=== PATIENT | female | born 1950 | race Two or more races ===

== ENCOUNTER 2017-02-06 13:00 | Emergency (ER) | payer MEDICAID, OTHER ==
[~2017-02-06] VITALS: Ht 170.2 cm; Wt 83.0 kg
[2017-02-06 13:43] VITALS: BP 162/90
== END 2017-02-06 15:14 | disposition home or self-care (01) ==
LOC: ER 13:04
DX: M62.838 Other muscle spasm (principal); I10 Essential (primary) hypertension
CPT/HCPCS: A4606; Z7610

== ENCOUNTER 2017-03-12 02:54 | Emergency (ER) | payer MEDICAID ==
[~2017-03-12] VITALS: Ht 172.7 cm; Wt 72.6 kg
--- NOTE | 2017-03-12 03:41 | NUR ---
Patient discharged to home in stable condition. Written and verbal after care instructions given. Patient verbalizes understanding of instruction. ambulatory with a steady gait
[2017-03-12 03:42] VITALS: BP 157/80
== END 2017-03-12 03:43 | disposition home or self-care (01) ==
LOC: ER 02:59
DX: I10 Essential (primary) hypertension (principal); F41.9 Anxiety disorder, unspecified; Z98.890 Other specified postprocedural states
CPT/HCPCS: 99283; A4606; Z7610

== ENCOUNTER 2018-07-22 16:02 | Emergency (ER) | payer MEDICARE, MEDICAID ==
[~2018-07-22] VITALS: Ht 172.7 cm; Wt 88.5 kg
[2018-07-22 16:17] VITALS: BP 170/74
[2018-07-22] MEDS ORDERED: OXYMETAZOLINE HCL NASAL SPRAY 30 ML BOTTLE NS ONE ×2 (16:30→16:31)
--- NOTE | 2018-07-22 17:51 | NUR ---
For discharge- Aftercare instructions given, verbalized understanding.NO active nose bleed noted. Home ambulatory. Stable
== END 2018-07-22 17:53 | disposition home or self-care (01) ==
LOC: ER 16:03
DX: R04.0 Epistaxis (principal); I10 Essential (primary) hypertension; E78.00 Pure hypercholesterolemia, unspecified; Z90.89 Acquired absence of other organs; Z98.890 Other specified postprocedural states; Z60.2 Problems related to living alone
CPT/HCPCS: 99283; A4606

== ENCOUNTER 2021-09-03 18:32 | Inpatient (IN) | payer MEDICARE, OTHER ==
[~2021-09-03] VITALS: Ht 172.7 cm; Wt 84.8 kg
--- NOTE | 2021-09-03 19:19 | NUR ---
REPORT GIVEN TO NURSE GALO FOR ARIC
[2021-09-03 19:59] LABS: CALCIUM, SERUM 8.7 mg/dL (8.5-10.1); CARBON DIOXIDE 29 mmol/L (21-32); CHLORIDE 104 mmol/L (98-107); GLUCOSE 111 mg/dL (74-106); POTASSIUM 4.4 mmol/L (3.5-5.1); SODIUM SERUM 137 mmol/L (136-145); UREA NITROGEN, BLOOD 22 mg/dL (7-18)
[2021-09-03 20:00] LABS: BASOPHILS # (AUTO) 0.1 K/uL (0.0-0.2); BASOPHILS % (AUTO) 1.2 % (0.0-2.0); HEMATOCRIT 33 % (33-45); HEMOGLOBIN 11.2 g/dL (11.5-14.8); LYMPHOCYTES # (AUTO) 1.5 K/uL (0.8-4.8); LYMPHOCYTES % (AUTO) 33.7 % (20.0-44.0); MEAN CORPUSCULAR HGB CONC 34 g/dl (31.0-36.0); MEAN CORPUSCULAR VOLUME 85 fL (82-100); MONOCYTES # (AUTO) 0.5 K/uL (0.1-1.30); MONOCYTES % (AUTO) 11.8 % (2.0-12.0); NEUTROPHILS # (AUTO) 2.2 K/uL (1.8-8.9); NEUTROPHILS % (AUTO) 51.3 % (43.0-81.0); PLATELET COUNT (AUTO) 235 K/uL (150-450); RED BLOOD CELL COUNT(AUTO) 3.91 MIL/uL (4.0-5.2); WHITE BLOOD COUNT (AUTO) 4.3 K/uL (4.3-11.0)
[2021-09-03 20:13] LABS: ALANINE AMINOTRANSFERASE 14 U/L (12-78); ALBUMIN 3.5 g/dL (3.4-5.0); ALKALINE PHOSPHATASE 94 U/L (46-116); ASPARTATE AMINOTRANSFERASE 12 U/L (15-37); BILIRUBIN,DIRECT 0.1 mg/dL (0.0-0.2); BILIRUBIN,TOTAL 0.3 mg/dL (0.2-1.0); THYROID STIMULATING HORMONE 3.59 uIU/mL (0.358-3.74); TOTAL PROTEIN, SERUM 7.4 g/dL (6.4-8.2)
[2021-09-03 20:28] LABS: MAGNESIUM 2.1 mg/dL (1.8-2.4)
--- NOTE | 2021-09-03 21:14 | NUR ---
COVID SWAB COLLECTED AND SENT TO LAB
--- NOTE | 2021-09-03 21:19 | NUR ---
CALLED [facility] PAGED SIRI ANDREWS
[2021-09-03] MEDS ORDERED: ASPIRIN 325 MG TABLET PO ONE (22:00)
[2021-09-03] MEDS: BLOOD SUGAR DIAGNOSTIC 1 EACH STRIP IN SCH (22:00)
[2021-09-03] MEDS ORDERED: ASPI-1420 PO (22:15)
[2021-09-03] MEDS ORDERED: DONE5TAB34 PO (22:15)
[2021-09-03] MEDS ORDERED: QUET25TA PO (22:15)
[2021-09-03] MEDS ORDERED: LEVO50TA8 PO (22:15)
[2021-09-03] MEDS ORDERED: BENA20TA9 PO (22:15)
[2021-09-03] MEDS ORDERED: SIMV-49 PO (22:15)
[2021-09-03] MEDS ORDERED: ERGO500040 PO (22:15)
[2021-09-03] MEDS ORDERED: SERT25TA PO (22:15)
[2021-09-03] MEDS ORDERED: ASPIRIN 325 MG TABLET ONE (22:33)
--- NOTE | 2021-09-04 | NUR ---
ROLLER COASTER DESIGNERLEATHER POLISHER NOTES RECEIVED PER CHAYO THIS 71 Y.O.FEMALE FROM HOME,ALERT,ORIENTED X4,AUSTRALIAN,SPEAK NEPALI WELL,WITH CHIEF COMPLAINTS OF FEELING ANXIOUS,SOB,INCREASED BLOOD PRESSURE,WITH SLOWER ALBER YESTERDAY.DX-ACUTE CVA.STROKE SCALE DONE WITH NORMAL RESPONSE.NO DRIP ON UPPER AND LOWER EXTREMITIES WHEN TESTED.AMBULATE WITH STEADY GAIT,NO CHEST PAIN,NO SOB UPON ARRIVAL ON THE UNIT.KEPT NPO ORDERED.WILL CONTINUE TO MONITOR STATUS.
--- NOTE | 2021-09-04 00:02 | NUR ---
PT TRANSFERRING TO 3W 323-1 VIA ACLS PROTOCOL. VSS. ALL BELONGINGS WITH PT.
[2021-09-04 01:00] VITALS: BP 158/55
[2021-09-04] MEDS: IV NS 0.9% 1,000 ML IV PRN (03:58)
[2021-09-04 04:00] VITALS: BP 132/59
[2021-09-04 04:46] VITALS: BP 132/59
[2021-09-04 05:08] LABS: BILIRUBIN,URINE NEGATIVE (NEGATIVE); COLOR,URINE YELLOW (YELLOW); LEUKOCYTE ESTERASE ,URINE NEGATIVE (NEGATIVE); NITRITE, URINE NEGATIVE (NEGATIVE); PROTEIN,URINE NEGATIVE (NEGATIVE); UGLUCOSE NEGATIVE (NEGATIVE); UROBILINOGEN,URINE 0.2 EU/dL (0.2)
[2021-09-04 06:57] LABS: EOSINOPHILS % (AUTO) 2.8 % (0.0-6.0); HEMATOCRIT 31 % (33-45); HEMOGLOBIN 10.8 g/dL (11.5-14.8); LYMPHOCYTES # (AUTO) 1.8 K/uL (0.8-4.8); LYMPHOCYTES % (AUTO) 39.1 % (20.0-44.0); MEAN CORPUSCULAR HGB CONC 34 g/dl (31.0-36.0); MEAN CORPUSCULAR VOLUME 85 fL (82-100); MONOCYTES # (AUTO) 0.5 K/uL (0.1-1.30); MONOCYTES % (AUTO) 11.7 % (2.0-12.0); NEUTROPHILS # (AUTO) 2.1 K/uL (1.8-8.9); NEUTROPHILS % (AUTO) 45.4 % (43.0-81.0); PLATELET COUNT (AUTO) 227 K/uL (150-450); RED BLOOD CELL COUNT(AUTO) 3.71 MIL/uL (4.0-5.2); WHITE BLOOD COUNT (AUTO) 4.7 K/uL (4.3-11.0)
--- NOTE | 2021-09-04 07:19 | NUR ---
BIOINFORMATICS ANALYST NOTES SR ON TELE MONITOR,SLEEP WELL,DENIES ANI DISCOMFORTS,LATE CALL FROM HOSPITALIST SIRI,PATIENT GOING FOR MRI HEAD WITH AND WITHOUT CONTRAST,MRA NECK/ BRAIN WITH CONTRAST ORDERED BU DR MADSEN.KEPT NPO ORDERED.NO DISTRESS.
--- NOTE | 2021-09-04 07:19 | NUR ---
PHARMACY DISTRICT MANAGER OPENING NOTES RECEIVED PT IN BED AWAKE, A/O X4. ABLE TO MAKE NEEDS KNOWN, DENIES PAIN OR ANY DISCOMFORTS AT THIS TIME. ON ROOM AIR, BREATHING EVEN AND UNLABORED, NO SOB NOTED. ON TELE-MONITOR WITH CURRENT READING OF NSR, HR 69, NO C/O CARDIAC DISTRESS VOICED AT THIS TIME. IV ACCESS ON RAC G#20 INTACT WITH IVF OF NS RUNNING AT 75ML/HR, NO S/S OF INFILTRATION NOTED. SAFETY MEASURES IN PLACE: BED IN LOWEST LOCKED POSITION WITH SR UP X2, CALL LIGHT W/IN REACH OF PT. WILL CONTINUE TO MONITOR PT ACCORDINGLY.
[2021-09-04] MEDS: PANTOPRAZOLE 40 MG TABLET.DR PO SCH (07:30)
[2021-09-04] MEDS: LEVOTHYROXINE SODIUM 50 MCG TABLET PO SCH (07:30)
[2021-09-04] MEDS: BLOOD SUGAR DIAGNOSTIC 1 EACH STRIP IN SCH ×4 (07:47→21:49)
[2021-09-04 08:00] VITALS: BP 159/79
--- NOTE | 2021-09-04 08:04 | NUR ---
3d technologist (GARIMA) notified via text.
[2021-09-04 08:57] LABS: CALCIUM, SERUM 8.5 mg/dL (8.5-10.1); CREATININE 0.8 mg/dL (0.6-1.3); POTASSIUM 3.9 mmol/L (3.5-5.1)
[2021-09-04] MEDS: DONEPEZIL 5 MG TABLET PO SCH (09:00)
[2021-09-04] MEDS ORDERED: ASPIRIN EC 325 MG TABLET.DR PO SCH (09:00)
[2021-09-04] MEDS: SERTRALINE HCL 25 MG TABLET PO SCH (09:00)
[2021-09-04] MEDS: CLOPIDOGREL BISULFATE 75 MG TABLET PO SCH (09:00)
[2021-09-04] MEDS ORDERED: ASPIRIN EC 81 MG TABLET.DR PO SCH (09:00)
--- NOTE | 2021-09-04 11:33 | NUR ---
RN NOTES PT PICKED-UP VIA WHEELCHAIR FOR MRI OF BRAIN AND NECK
[2021-09-04 13:17] VITALS: BP 169/76
--- NOTE | 2021-09-04 13:30 | NUR ---
received call from Dr. Sarmiento radiologist regarding abnormal MRI result. Dr. Bruno and Dr. Kwan informed by primary nurse awaiting response.
[2021-09-04] MEDS ORDERED: GADOTERATE MEGLUMINE 10 MMOL/20 ML VIAL IV ONE (13:58)
--- NOTE | 2021-09-04 14:50 | NUR ---
NURSE'S NOTES INFORMED DR MORALES AND DR MADSEN MRI OF BRAIN,NECK AND HEAD. INFORMED ALSO DR MORALES THAT PT PASSED THE SWALLOW EVAL. DR MORALES ORDERED TO START CARDIAC DIET.
--- NOTE | 2021-09-04 18:27 | NUR ---
[place] DRIVER CLOSING NOTES: RECEIVED PT IN BED RESTING, A/O X 4 ABLE TO VERBALIZED NEEDS. NO COMPLAIN OF ANY PAIN AT THIS TIME. RESIDENT NOT IN RESPIRATORY DISTRESS, AFEBRILE. ON TELE-MONITORI RECEIVED PT IN BED AWAKE, A/O X4. ABLE TO MAKE NEEDS KNOWN, DENIES PAIN OR ANY DISCOMFORTS AT THIS TIME. ON ROOM AIR, BREATHING EVEN AND UNLABORED, NO SOB NOTED. ON TELE-MONITOR WITH CURRENT READING OF NSR, HR 69, NO C/O CARDIAC DISTRESS VOICED AT THIS TIME. IV ACCESS ON RAC G#20 INTACT WITH IVF OF NS RUNNING AT 75ML/HR, NO S/S OF INFILTRATION NOTED. SAFETY MEASURES IN PLACE: BED IN LOWEST LOCKED POSITION WITH SR UP X2, CALL LIGHT W/IN REACH OF PT. WILL CONTINUE TO MONITOR PT ACCORDINGLY. Addendum: 09/04/21 at 1831 by JOHNNY NORTON RN ERROR PLEASE DISREGARD THIS PROGRESS NOTES
--- NOTE | 2021-09-04 18:31 | NUR ---
[employer] DEVELOPER CLOSING NOTES: PT IN BED RESTING W/ FAMILY AT BEDSIDE, A/OX4 AND ABLE TO VERBALIZED NEEDS. ON TELE-MONITOR WITH CURRENT READING OF NSR HR 68 AT THIS TIME, NO CARDIAC DISTRESS VERBALIZED BY THE PT. PT NOTED W/ NORMAL UNLABORED BREATHING ON ROOM AIR, NO COMPLAIN OF PAIN AND AFEBRILE. NOTED W/ IV PERIPHERAL PATENT AND INTACT ON RAC G#20 IVF OF NS @75ML/HR INFUSING WELL, NO REDNESS OR SWELLING ON IV SITE. SAFETY MEASURES MAINTAINED: BED IN LOWEST POSITION AND LOCKED W/ SR UP X2. CALL LIGHT W/IN EASY REACH FOR HELP/ASSISTANCE. WILL ENDORSED ARIC TO NEXT SHIFT.
--- NOTE | 2021-09-04 19:45 | NUR ---
ASSESSMENT RN OPENING NOTE RECEIVED PT IN BED AWAKE. FAMILY AT BEDSIDE. A/OX4 AND ABLE TO MAKE NEEDS KNOWN.PT STABLE ON ROOM AIR. NO SOB OR S/S OF RESPIRATORY DISTRESS. BREATHING EVEN AND UNLABORED. ON EXTERNAL TALENT MANAGEMENT SPECIALIST WITH CURRENT READING OF SR HR 66. IV ACCESS RAC 20 GAUGE RUNNING NS @75ML/HR. SAFETY PRECAUTIONS IN PLACE. BED IN LOWEST LOCKED POSITION, HOB ELEVATED, SIDE RAILS UP X2, AND CALL LIGHT AND TABLE WITHIN REACH. ALL NEEDS MET AT THIS TIME.
[2021-09-04 20:00] VITALS: BP 122/69
[2021-09-04] MEDS ORDERED: SIMVASTATIN 20 MG TABLET PO SCH (22:00)
[2021-09-05] VITALS: BP 137/65
[2021-09-05] MEDS: IV NS 0.9% 1,000 ML IV PRN (05:42)
[2021-09-05 06:26] LABS: BASOPHILS # (AUTO) 0.1 K/uL (0.0-0.2); BASOPHILS % (AUTO) 1.3 % (0.0-2.0); EOSINOPHILS % (AUTO) 2.1 % (0.0-6.0); HEMATOCRIT 31 % (33-45); HEMOGLOBIN 10.8 g/dL (11.5-14.8); LYMPHOCYTES # (AUTO) 1.5 K/uL (0.8-4.8); MEAN CORPUSCULAR HGB CONC 35 g/dl (31.0-36.0); MEAN CORPUSCULAR VOLUME 84 fL (82-100); MONOCYTES # (AUTO) 0.6 K/uL (0.1-1.30); MONOCYTES % (AUTO) 13.1 % (2.0-12.0); NEUTROPHILS # (AUTO) 2.4 K/uL (1.8-8.9); NEUTROPHILS % (AUTO) 50.5 % (43.0-81.0); PLATELET COUNT (AUTO) 211 K/uL (150-450); RED BLOOD CELL COUNT(AUTO) 3.69 MIL/uL (4.0-5.2); WHITE BLOOD COUNT (AUTO) 4.7 K/uL (4.3-11.0)
[2021-09-05 06:59] LABS: CALCIUM, SERUM 8.6 mg/dL (8.5-10.1); CREATININE 0.8 mg/dL (0.6-1.3); MAGNESIUM 2.1 mg/dL (1.8-2.4); PHOSPHORUS 4.1 mg/dL (2.5-4.9)
--- NOTE | 2021-09-05 07:28 | NUR ---
NEUROUROLOGIST OPENING NOTES RECEIVED PT IN BED AWAKE, A/O X3. ABLE TO MAKE NEEDS KNOWN. ON RA, TOLERATING WELL. BREATHING EVEN AND UNLABORED WITH NO SIGN OF RESPIRATORY DISTRESS. ON TELE MONITOR WITH CURRENT READING OF NORMAL SR, HR 65. NO COMPLAIN OF CARDIAC DISCOMFORT OR DISTRESS. IV ACCESS IN RAC G #20, INTACT AND PATENT WITH NS RUNNING AT 75ML/HR. SAFETY MEASURES IN PLACE: BED IN LOWEST AND LOCKED POSITION, BED RAILS UP X2, CALL LIGHT WITHIN REACH. WILL CONTINUE TO MONITOR PT AND WITH PLAN OF CARE.
--- NOTE | 2021-09-05 07:39 | NUR ---
PROCESS TREATER CLOSING NOTE PT IN BED AWAKE. A/OX4 AND ABLE TO MAKE NEEDS KNOWN.PT STABLE ON ROOM AIR. NO SOB OR S/S OF RESPIRATORY DISTRESS. BREATHING EVEN AND UNLABORED. ON EXTERNAL RETREAD BUILDER WITH CURRENT READING OF SR HR 69. IV ACCESS RAC 20 GAUGE RUNNING NS @75ML/HR. SAFETY PRECAUTIONS IN PLACE. BED IN LOWEST LOCKED POSITION, HOB ELEVATED, SIDE RAILS UP X2, AND CALL LIGHT AND TABLE WITHIN REACH. ALL NEEDS MET AT THIS TIME AND WILL ENDORSE TO ONCOMING SHIFT FOR ARIC.
[2021-09-05] MEDS: BLOOD SUGAR DIAGNOSTIC 1 EACH STRIP IN SCH ×2 (07:52→12:02)
[2021-09-05] MEDS: PANTOPRAZOLE 40 MG TABLET.DR PO SCH (07:55)
[2021-09-05] MEDS: LEVOTHYROXINE SODIUM 50 MCG TABLET PO SCH (07:55)
[2021-09-05] MEDS: SERTRALINE HCL 25 MG TABLET PO SCH (08:04)
[2021-09-05] MEDS: DONEPEZIL 5 MG TABLET PO SCH (08:04)
[2021-09-05] MEDS: CLOPIDOGREL BISULFATE 75 MG TABLET PO SCH (08:04)
[2021-09-05] MEDS ORDERED: CHOLECALCIFEROL 1,000 UNIT TABLET (VIT D3) PO SCH (09:00)
[2021-09-05] MEDS ORDERED: ASPIRIN EC 81 MG TABLET.DR PO SCH (09:00)
[2021-09-05 09:56] VITALS: BP 145/79
[2021-09-05 12:00] VITALS: BP 161/80
[2021-09-05] MEDS ORDERED: CLOP75TA15 PO (12:15)
[2021-09-05] MEDS ORDERED: SIMV80TA90 PO (12:15)
--- NOTE | 2021-09-05 14:15 | NUR ---
EARLY EDUCATION TEACHER NOTES PT DISCHARGED TO HOME IN STABLE CONDITION. PT A/O X4. ABLE TO MAKE NEEDS KNOWN. ON RA, TOLERATING WELL, WITH SPO2 AT 98%. BREATHING EVEN AND UNLABORED. NOT IN ANY SIGN OF RESPIRATORY DISTRESS. V/S TAKEN, STABLE, AND RECORDED. SKIN INTACT WITH NO VISUAL SKIN IMPAIRMENTS NOTED. ALL BELONGINGS ACCOUNTED FOR. ALL DISCHARGED INSTRUCTIONS AND PATIENT TEACHING EXPLAINED AND GIVEN TO PT, PT VERBALIZED UNDERSTANDING AND SIGNED DISCHARGED PAPERS. IV ACCESS IN RAC G #20 REMOVED WITH NO ACTIVE BLEEDING NOTED. DRY PRESSURE DRESSING APPLIED AT SITE. PT LEFT THE UNIT VIA WHEELCHAIR, PICKED UP BY . PT WAS ACCOMPANIED BY WOODY LANDA MD AND CHARGED NURSE AWARE OF DISCHARGE.
== END 2021-09-05 14:30 | disposition home or self-care (01) | DRG 66 ==
LOC: ER 18:42 → TELE 23:01
PROVIDERS: ADMIT Nurse Practitioner Acute Care; ATTEND Student in an Organized Health Care Education/Training Program
DX: I63.9 Cerebral infarction, unspecified (principal); I10 Essential (primary) hypertension; I16.0 Hypertensive urgency; E03.9 Hypothyroidism, unspecified; E11.9 Type 2 diabetes mellitus without complications; E78.5 Hyperlipidemia, unspecified; F41.9 Anxiety disorder, unspecified; Z20.822 Contact with and (suspected) exposure to COVID-19; R29.703 NIHSS score 3; R79.89 Other specified abnormal findings of blood chemistry; F32.A Depression, unspecified; Z79.899 Other long term (current) drug therapy
CPT/HCPCS: 36415; 70450-TC; 70544-TC; 70547-TC; 70553-TC; 71045-TC; 80048-TC; 80061-TC; 80076-TC; 82962-TC; 83735-TC; 83880; 84100-TC; 84439-TC; 84443-TC; 84484-TC; 85025-TC; 85730-TC; 87081-TC; 92526; 93307-TC; 93880-TC; 97116-TC; 97530-TC; A9575; C9803; G0378; J7030

== ENCOUNTER 2021-10-14 10:42 | Emergency (ER) | payer MEDICARE, OTHER ==
[~2021-10-14] VITALS: Ht 172.7 cm; Wt 78.5 kg
[~2021-10-14 10:42] MED LIST: ASPI-1420 PO; BENA20TA9 PO; CLOP75TA15 PO; DONE5TAB34 PO; ERGO500040 PO; LEVO50TA8 PO; QUET25TA PO; SERT25TA PO; SIMV80TA90 PO
--- NOTE | 2021-10-14 10:47 | NUR ---
BIBS C/O HIGH BLOOD PRESSURE AND HEADACHE SINCE THIS MORNING, TOOK BENAZEPRIL 20MG 0900. BLOOD PRESSURE WITHIN NORMAL LIMITS UPON TRIAGE. VITALS ARE WITHIN NORMAL LIMITS, NO RESP DISTRESS NOTED. AWAITING MD BARRY.
[2021-10-14] MEDS ORDERED: POTASSIUM CL. PREMIX PERIPHER. 50 ML IV SCH (11:00)
[2021-10-14] MEDS ORDERED: POTASSIUM CHLORIDE 20 MEQ TAB.PRT.SR PO ONE (11:00)
--- NOTE | 2021-10-14 11:22 | NUR ---
PT TAKEN TO CT VIA WHEELCHAIR
[2021-10-14] MEDS ORDERED: ACETAMINOPHEN ES 500 MG TABLET ONE (11:24)
[2021-10-14] MEDS ORDERED: ACETAMINOPHEN 325 MG TABLET PO ONE (11:30)
[2021-10-14] MEDS ORDERED: ICOS1CAP PO (12:00)
[2021-10-14] MEDS ORDERED: APIX5TAB PO (12:00)
[2021-10-14] MEDS ORDERED: IBUP-1955 PO (12:00)
[2021-10-14] MEDS ORDERED: ESCI5TAB PO (12:00)
[2021-10-14] MEDS ORDERED: SIMV80TA90 PO (12:00)
[2021-10-14] MEDS ORDERED: FERR325T23 PO (12:00)
[2021-10-14] MEDS ORDERED: CARV6.252 PO (12:00)
[2021-10-14 13:10] VITALS: BP 132/74
--- NOTE | 2021-10-14 13:10 | NUR ---
Patient discharged to home in stable condition. Written and verbal after care instructions given. Patient verbalizes understanding of instruction.
== END 2021-10-14 13:10 | disposition home or self-care (01) ==
LOC: ER 10:52
DX: R51.9 Headache, unspecified (principal); I10 Essential (primary) hypertension; E78.5 Hyperlipidemia, unspecified; E03.9 Hypothyroidism, unspecified; Z86.73 Personal history of transient ischemic attack (TIA), and cerebral infarction without residual deficits; Z96.641 Presence of right artificial hip joint; Z60.2 Problems related to living alone; Z79.899 Other long term (current) drug therapy
CPT/HCPCS: 70450-TC